=== PATIENT | male | born 1985 | race Caucasian/White ===

== ENCOUNTER 2024-01-17 14:50 | Emergency (ER) | payer BC ==
[~2024-01-17] VITALS: Ht 195.6 cm; Wt 141.2 kg
[2024-01-17] MEDS: normal saline 1000ML IV soln IV ONE (16:08)
[2024-01-17] MEDS: piperacillin/tazo 3.375gm/50ml 50 ML IV ONE (16:14)
[2024-01-17 16:17] LABS: BASOPHILS % (AUTO) 0.8 % (0-1); EOSINOPHILS # (AUTO) 0.1 X10'3 (0-0.9); EOSINOPHILS % (AUTO) 2.2 % (0-6); HEMATOCRIT 44.4 % (42.0-52.0); HEMOGLOBIN 14.8 g/dl (14.0-17.9); LYMPHOCYTES # (AUTO) 1.4 X10'3 (1.1-4.8); MEAN CORPUSCULAR HEMOGLOBIN 30.7 PG (27.0-31.0); MEAN CORPUSCULAR HGB CONC 33.4 g/dL (33.0-36.5); MEAN PLATELET VOLUME 9.3 FL (7.4-10.4); MONOCYTES # (AUTO) 0.7 X10'3 (0-0.9); MONOCYTES % (AUTO) 13.3 % (2-12); NEUTROPHILS % (AUTO) 57.7 % (42-75); PLATELET COUNT 226 X10'3 (140-440); RED BLOOD COUNT 4.83 X10'6 (4.70-6.10); RED CELL DISTRIBUTION WIDTH 13.7 % (11.5-14.5); WHITE BLOOD COUNT 5.2 X10'3 (4.5-11.0)
[2024-01-17 16:19] LABS: BILIRUBIN,URINE NEGATIVE (Neg); CLARITY,URINE CLEAR (Clear); COLOR,URINE YELLOW (Yellow); GLUCOSE, URINE NEGATIVE (Neg); KETONES,URINE NEGATIVE (Neg); LEUKOCYTE ESTERASE ,URINE NEGATIVE (Neg); NITRITES, URINE NEGATIVE (Neg); OCCULT BLOOD,URINE NEGATIVE (Neg); PROTEIN,URINE NEGATIVE (Neg); UROBILINOGEN,URINE 0.2 E.U/dL (0.2-1.0)
[2024-01-17 16:26] LABS: UA COLLECTION TYPE VOIDED
[2024-01-17 16:33] LABS: ALBUMIN 3.8 G/DL (3.4-5.0); ANION GAP 8 (8-16); BLOOD UREA NITROGEN 12 MG/DL (7-18); BUN/CREATININE RATIO 11.9 (10.0-20.0); CALCIUM 9.3 MG/DL (8.5-10.1); CHLORIDE 105 MMOL/L (99-107); CREATININE 1.01 MG/DL (0.60-1.10); GLUCOSE 108 MG/DL (70-104); MAGNESIUM 2.1 MG/DL (1.5-2.4); POTASSIUM 3.8 MMOL/L (3.5-5.1); SODIUM 141 MMOL/L (135-145); TOTAL CARBON DIOXIDE 28.2 MMOL/L (24-32); eCRCL 124 ML/MIN; eGFR 82 ML/MIN
[2024-01-17] MEDS ORDERED: iohexol 300mg/ml 100ml inj. ONE (16:37)
[2024-01-17] MEDS: vancomycin/NS 1 GM ADD-VANTAGE 250 ML X 1 DOSE IV ONE (16:54)
[2024-01-17] MEDS ORDERED: SULF1TAB49 PO (19:09)
[2024-01-17] MEDS ORDERED: NYST30CR34 TOP (19:09)
[2024-01-17] MEDS ORDERED: CEPH-585 PO (19:09)
[2024-01-17] MEDS ORDERED: DIF150T PO (19:09)
[2024-01-17 19:12] VITALS: BP 134/72; PULSE 64; RESP 14; TEMP 98.2; O2SAT 99
== END 2024-01-17 19:39 | disposition home or self-care (01) ==
LOC: ER 14:51
DX: N48.22 Cellulitis of corpus cavernosum and penis (principal); R50.9 Fever, unspecified; R30.9 Painful micturition, unspecified; R07.89 Other chest pain
CPT/HCPCS: 36415; 71045; 74177; 76870; 80048; 81003; 83605; 83735; 84145; 85025; 87040; 93005; 93976; 96365; 96367; 99285; J2543; J3370; J7030; Q9967